=== PATIENT | male | born 1970 | race African-American/Black ===

== ENCOUNTER 2019-04-25 19:31 | Emergency (ER) | payer MEDICAID | END 2019-04-25 23:42 | disposition left against medical advice (07) | LOC: ER 23:40 | DX: M79.601 Pain in right arm (principal); Z53.21 Procedure and treatment not carried out due to patient leaving prior to being seen by health care provider ==

== ENCOUNTER 2020-01-01 07:57 | Emergency (ER) | payer MEDICAID ==
[~2020-01-01] VITALS: Ht 172.7 cm; Wt 86.0 kg
[2020-01-01 08:07] VITALS: BP 117/56
== END 2020-01-01 08:55 | disposition home or self-care (01) ==
LOC: ER 07:57
DX: L03.115 Cellulitis of right lower limb (principal); L02.611 Cutaneous abscess of right foot; Z88.0 Allergy status to penicillin
CPT/HCPCS: 99282

== ENCOUNTER 2020-09-03 12:59 | Emergency (ER) | payer MEDICAID ==
[~2020-09-03] VITALS: Ht 177.8 cm; Wt 75.0 kg
[2020-09-03] MEDS ORDERED: CLINDAMYCIN HCL 150MG CAPSULE PO STA (13:46)
[2020-09-03] MEDS ORDERED: LIDOCAINE HCL/PF 1% 10 MG/ML 5ML VIAL IJ ONE (14:00)
[2020-09-03] MEDS ORDERED: IBUPROFEN 600MG TABLET PO ONE (14:00)
[2020-09-03] MEDS ORDERED: METRONIDAZOLE 500 MG PREMIX 100 ML IV ONE (14:00)
[2020-09-03] MEDS ORDERED: BACITRACIN ZINC OINT UDPKT TOP ONE (14:00)
[2020-09-03] MEDS ORDERED: TETANUS, DIPHTHERIA, PERTUSSIS VAC/PF 0.5ML (>7YR OLD) IM ONE (14:00)
[2020-09-03] MEDS ORDERED: HYDROCODONE/ACETAMINOPHEN 5/325MG TABLET PO ONE (14:00)
[2020-09-03 16:50] LABS: HEMATOCRIT. 33.1 % (42.0-52.0); HEMOGLOBIN. 10.9 g/dL (14.0-18.0); MEAN CORPUSCULAR VOLUME 84.9 fL (80.0-94.0); MEAN PLATELET VOLUME 6.2 fl (7.4-10.4); PLATELET 360 x1000/uL (130-400); RED CELL DISTRIBUTION WIDTH 14.3 % (11.6-14.6)
[2020-09-03 16:56] LABS: INR 1.4; PROTHROMBIN TIME 14.6 sec (9.6-11.0)
[2020-09-03 16:57] LABS: CHLORIDE 99 mEq/L (98-107)
[2020-09-03 17:02] LABS: ETHANOL BLOOD < 10 mg/dL
[2020-09-03 17:32] VITALS: BP 133/62
[2020-09-03 17:42] LABS: PLATELET ESTIMATE NORMAL
[2020-09-03] MEDS ORDERED: IOHEXOL-300 100 ML BOTTLE ONE ×2 (18:01→18:02)
[2020-09-03] MEDS ORDERED: ACETAMINOPHEN 325MG TABLET PO ONE (19:45)
== END 2020-09-03 19:58 | disposition home or self-care (01) ==
LOC: ER 12:59
DX: L02.31 Cutaneous abscess of buttock (principal); L03.317 Cellulitis of buttock; Z88.0 Allergy status to penicillin; F17.290 Nicotine dependence, other tobacco product, uncomplicated; H40.9 Unspecified glaucoma
CPT/HCPCS: 36415; 71045; 74177; 80053; 80320; 83690; 85025; 85610; 90471; 90715; 96365; 99285; J3490; Q9967; Z7610; G0480

== ENCOUNTER 2022-02-11 12:16 | Emergency (ER) | payer MEDICAID ==
[~2022-02-11] VITALS: Ht 160 cm; Wt 83.0 kg
[2022-02-11 12:54] VITALS: BP 126/74
== END 2022-02-11 12:46 | disposition left against medical advice (07) ==
LOC: ER 12:16
DX: Z53.21 Procedure and treatment not carried out due to patient leaving prior to being seen by health care provider (principal)

== ENCOUNTER 2022-05-03 09:23 | Emergency (ER) | payer MEDICAID ==
[~2022-05-03] VITALS: Ht 172.7 cm; Wt 81.0 kg
[2022-05-03] MEDS ORDERED: ACETAMINOPHEN WITH CODEINE 300/30MG TABLET PO ONE (12:00)
[2022-05-03 12:16] VITALS: BP 136/71
[2022-05-03] MEDS ORDERED: CLIN-194 MT (12:27)
[2022-05-03] MEDS ORDERED: T3 PO (16:10)
== END 2022-05-03 13:06 | disposition home or self-care (01) ==
LOC: ER 09:37
DX: L03.116 Cellulitis of left lower limb (principal); M79.672 Pain in left foot; M79.89 Other specified soft tissue disorders; F17.290 Nicotine dependence, other tobacco product, uncomplicated; F12.10 Cannabis abuse, uncomplicated; Z88.0 Allergy status to penicillin
CPT/HCPCS: 73630; 82962; 99284; Z7610

== ENCOUNTER 2022-05-07 09:37 | Emergency (ER) | payer MEDICAID ==
[~2022-05-07] VITALS: Ht 172.7 cm; Wt 82.0 kg
[~2022-05-07 09:37] MED LIST: CLIN-194 MT; T3 PO
[2022-05-07 09:42] VITALS: BP 110/71
[2022-05-07] MEDS ORDERED: OXYCODONE HCL/ACETAMINOPHEN 5/325MG TABLET PO ONE (10:15)
[2022-05-07] MEDS ORDERED: IBUP-2028 PO (10:37)
[2022-05-07] MEDS ORDERED: T3 PO (10:37)
[2022-05-07] MEDS ORDERED: OXYCODONE HCL/ACETAMINOPHEN 5/325MG TABLET PO NR (10:45)
== END 2022-05-07 11:17 | disposition home or self-care (01) ==
LOC: ER 09:37
DX: M79.672 Pain in left foot (principal); H40.9 Unspecified glaucoma; F12.10 Cannabis abuse, uncomplicated; Z88.0 Allergy status to penicillin
CPT/HCPCS: 99283

== ENCOUNTER 2024-07-03 09:38 | Emergency (ER) | payer MEDICAID ==
[~2024-07-03] VITALS: Ht 172.7 cm; Wt 78.0 kg
[~2024-07-03 09:38] MED LIST changes: +ASCO-339 MT; +IBUP-2028 PO; -T3 PO; +ZINC100T8 MT
[2024-07-03 09:42] VITALS: O2SAT 100
[2024-07-03 09:47] VITALS: BP 167/68; PULSE 83; RESP 16; TEMP 98.5; O2SAT 100
[2024-07-03] MEDS ORDERED: IBUP-2029 MT (11:08)
[2024-07-03] MEDS ORDERED: CLIN-194 MT (11:08)
[2024-07-03] MEDS: IBUPROFEN 600MG TABLET PO ONE (11:29)
[2024-07-03] MEDS: TETANUS, DIPHTHERIA, PERTUSSIS VAC/PF 0.5ML (>10YR OLD) IM ONE (11:29)
== END 2024-07-03 11:58 | disposition home or self-care (01) ==
LOC: ER 09:38
DX: L03.011 Cellulitis of right finger (principal); H40.9 Unspecified glaucoma; F12.90 Cannabis use, unspecified, uncomplicated; F10.20 Alcohol dependence, uncomplicated; Z98.890 Other specified postprocedural states; Z88.0 Allergy status to penicillin
CPT/HCPCS: 10060; 99283